=== PATIENT | male | born 1995 | race Caucasian/White ===

== ENCOUNTER 2019-03-15 15:48 | Emergency (ER) | payer MEDICAID ==
[~2019-03-15] VITALS: Ht 185.4 cm; Wt 71.2 kg
[2019-03-15 15:56] VITALS: Ht 185.4 cm; Wt 71.2 kg
[2019-03-15 17:37] LABS: BASOPHIL % 0.8 % (0-2); PLATELET COUNT 246 x10^3mcL (130-400); RED CELL DISTRIBUTION WIDTH 11.8 % (11.5-14.5)
[2019-03-15 17:48] LABS: CALCIUM 9.2 mg/dL (8.5-10.1); CARBON DIOXIDE 30.7 mmol/L (21-32); CHLORIDE SERUM 102 mmol/L (98-107); CREATININE SERUM 0.8 mg/dL (0.7-1.3); GFR1 > 60 mL/min; GLUCOSE SERUM 87 mg/dL (74-106); POTASSIUM SERUM 3.6 mmol/L (3.5-5.1); SODIUM SERUM 139 mmol/L (136-145)
[2019-03-15 17:54] LABS: ALBUMIN 4.4 g/dL (3.4-5.0); ALKALINE PHOSPHATASE 82 U/L (46-116); ALT/SGPT 149 U/L (16-63); AST/SGOT 58 U/L (15-37); BILIRUBIN TOTAL 1.2 mg/dL (0.20-1.00); TOTAL PROTEIN, SERUM 7.8 g/dL (6.4-8.2)
[2019-03-15 18:05] LABS: T3 TOTAL 1.14 ng/mL
[2019-03-15 18:20] LABS: AMPHETAMINE QUAL UR NONE DETECTED (See below)
[2019-03-15 18:33] LABS: FREE T4 1.01 ng/dL (0.76-1.46); T4(THYROXINE) 8.2 ug/dL (4.7-13.3)
[2019-03-15 19:08] LABS: FREE THYROXINE INDEX 2.8 ug/dL (1.4-4.5)
[2019-03-15 19:20] VITALS: BP 126/99
== END 2019-03-15 19:20 | disposition home or self-care (01) ==
LOC: ED 15:48
PROVIDERS: Emergency Medicine
DX: R07.89 Other chest pain (principal); F14.10 Cocaine abuse, uncomplicated
CPT/HCPCS: 36415; 84439; Q0092